=== PATIENT | male | born 1995 | race Two or more races ===

== ENCOUNTER 2019-02-27 20:38 | Emergency (ER) | payer OTHER ==
[~2019-02-27] VITALS: Ht 177.8 cm; Wt 81.0 kg
--- NOTE | 2019-02-27 20:53 | NUR ---
pt ambulatory to ed from work, was told by geronimo to go to ED. c/o loss of appetite x3 days. n/v today, threw up mult times this morning. no diarrhea. LLQ abd pain on palp. bs x4, normoactive. denies pmhx. vss. call dockery in reach awating md medina.
[2019-02-27 21:40] LABS: RAPID INFLUENZA A Negative (Negative); RAPID INFLUENZA B Negative (Negative)
[2019-02-27 21:40] LABS: BASOPHILS # (AUTO) 0.03 x10^3/uL (0-0.1); BASOPHILS % (AUTO) 0 % (0-1); EOSINOPHILS % (AUTO) 1 % (1-7); LYMPHOCYTES # (AUTO) 2.17 x10^3/uL (1-3.4); LYMPHOCYTES % (AUTO) 30 % (22-44); MD NO; MEAN CORPUSCULAR HEMOGLOBIN 31.8 pg (27.5-34.5); MEAN CORPUSCULAR HGB CONC 32.2 g/dL (33.2-36.2); MEAN CORPUSCULAR VOLUME 98.5 fL (81-97); MEAN PLATELET VOLUME 10.7 fL (7.4-10.4); MONOCYTES # (AUTO) 0.72 x10^3/uL (0.2-0.8); MONOCYTES % (AUTO) 10 % (2-9); NEUTROPHILS # (AUTO) 4.16 x10^3/uL (1.8-6.8); NEUTROPHILS % (AUTO) 58 % (42-75); PLATELET COUNT 236 x10^3/uL (130-400); RED BLOOD COUNT 4.61 x10^6/uL (4.38-5.82); RED CELL DISTRIBUTION WIDTH 12.6 % (9.4-14.8)
[2019-02-27 21:41] LABS: ANION GAP 3 mmol/L (5-15); CALCIUM 8.6 mg/dL (8.5-10.1); CHLORIDE 107 mmol/L (98-107)
[2019-02-27 21:57] LABS: MICROSCOPIC NOT IND
[2019-02-27 21:59] LABS: CULTURE INDICATED? NO
--- NOTE | 2019-02-27 22:03 | NUR ---
results back pt up for recheck
[2019-02-27 22:22] VITALS: BP 101/63
== END 2019-02-27 22:24 | disposition home or self-care (01) ==
LOC: ED 21:22
DX: R10.84 Generalized abdominal pain (principal); R11.2 Nausea with vomiting, unspecified; B34.9 Viral infection, unspecified
CPT/HCPCS: 36415; 80048; 81003; 85025; 87400; 93005; 99284